=== PATIENT | male | born 1995 | race Caucasian/White ===

== ENCOUNTER 2018-02-18 15:05 | Emergency (ER) | payer OTHER ==
[2018-02-18] MEDS ORDERED: Cephalexin CAP* 500 MG PO ONE (16:17)
[2018-02-18] MEDS ORDERED: Buffered Lidocaine 0.9% SYRIN* 5 ML/SYR SYRINGE INTRADERM ONE (16:19)
--- NOTE | 2018-02-18 16:23 | RAD ---
HISTORY: circular saw lac - distal finger COMPARISONS: None VIEWS: 3 , Frontal, lateral, and oblique views of the fourth digit of the left hand FINDINGS: BONE DENSITY: Normal. BONES: There is a linear defect consistent with a nondisplaced fracture along the medial (ulnar) aspect of the distal phalanx of the fourth digit. JOINTS: There is no arthropathy. ALIGNMENT: There is no dislocation. SOFT TISSUES: Unremarkable. OTHER FINDINGS: None. IMPRESSION: NONDISPLACED FRACTURE OF THE DISTAL PHALANX OF THE FOURTH DIGIT
--- NOTE | 2018-02-18 17:37 | ED ---
Upper Extremity Pain - HPI Summary HPI Summary: [id number] patient presents with left ring finger laceration while using a circular saw at work earlier today. He reports bleeding and some mild pain. He went to the police station as it was the nearest authority he could think of to seek medical attention and they called 911. Ambulance came and wrapped his finger however he declined further care at that time. After discussing his injury with a coworker, he decided to come in here. He reports his tetanus is up-to-date and denies numbness tingling or weakness. His bleeding is controlled with Glenn wrap in place which is been there for about an hour and has not saturated through. He declines pain medication at this time. - History of Current Complaint Chief Complaint: EDLacSutureRecheck Stated Complaint: LT FINGER LAC Time Seen by Provider: 02/18/18 15:15 Hx Obtained From: Patient - Allergies/Home Medications Allergies/Adverse Reactions: Allergies Allergy/AdvReac Type Severity Reaction Status Date / Time No Known Allergies Allergy Verified 02/18/18 15:21 PMH/Surg Hx/FS Hx/Imm Hx Previously Healthy: Yes Endocrine/Hematology History: Denies: Hx Anticoagulant Therapy, Hx Blood Disorders, Autoimmune Disease - Immunization History Immunizations Up to Date: Yes Infectious Disease History: No Infectious Disease History: Denies: Hx of Known/Suspected MRSA, Traveled Outside the [place] in Last 30 Days - Social History Occupation: Employed Full-time - [employer] Lives: With Family Alcohol Use: None Hx Substance Use: No Substance Use Type: Reports: None Hx Tobacco Use: No Smoking Status (MU): Never Smoked Tobacco Review of Systems Constitutional: Other - felt a little lightheaded after the injury but resolved quickly - no syncope Positive: no symptoms reported Musculoskeletal: Negative Skin: Other - lac Neurological: Negative Psychological: Normal All Other Systems Reviewed And Are Negative: Yes Physical Exam Triage Information Reviewed: Yes Vital Signs On Initial Exam: Initial Vitals Temp Pulse Resp BP Pulse Ox 98.7 F 73 18 137/81 99 02/18/18 15:18 02/18/18 15:18 02/18/18 15:18 02/18/18 15:18 02/18/18 15:18 Vital Signs Reviewed: Yes Appearance: Positive: Well-Appearing, No Pain Distress, Well-Nourished Skin: Positive: Warm, Skin Color Reflects Adequate Perfusion - jagged 1.5cm lac along distal Lt ring finger - bleeding controlled - 0.2cm through fingernail ( jagged) Head/Face: Positive: Normal Head/Face Inspection Eyes: Positive: EOMI ENT: Positive: Hearing grossly normal Respiratory/Lung Sounds: Positive: Breath Sounds Present Cardiovascular: Positive: Pulses are Symmetrical in both Upper and Lower Extremities - cap refill < 2 secs Musculoskeletal: Positive: Normal, Strength/ROM Intact Neurological: Positive: Normal, Sensory/Motor Intact, Alert, Oriented to Person Place, Time, CN Intact II-III Psychiatric: Positive: Normal Procedures - Laceration/Wound Repair 1 Location: upper extremity - Lt ring finger, distal Description: Irregular - jagged Anesthesia: Digital, 1.0%, Lido, Bicarb Length, Depth and Shape: 1.5cm x 3mm Betadine Prep?: Yes Irrigated w/ Saline (ccs): 100 - sterile saline Laceration/Wound Explored: clean Closure: Single Layer Suture Type: Other - 5-0 ethilon Number of Sutures: 4 Layer Closure?: No Sterile Dressing Applied?: Yes - xeroform + gauze + coban -hemodynamically stable Diagnostics - Vital Signs Vital Signs Temp Pulse Resp BP Pulse Ox 02/18/18 17:31 60 16 128/66 97 02/18/18 15:18 98.7 F 73 18 137/81 99 - Laboratory Lab Statement: Any lab studies that have been ordered have been reviewed, and results considered in the medical decision making process. Course/Dx - Course Course Of Treatment: XR: non-displaced fx of the distal phalanx. cleaned wound with soak and irrigation as well as iodone prior to sutures - dressed and advised close f/u w/ hand specialist. Reviewed danger s/sx of when to return to ED. Anbx initiated. Pt agrees w/ plan. - Diagnoses Provider Diagnoses: Open fracture of phalanx of left ring finger Discharge - Sign-Out/Discharge Documenting (check all that apply): Patient Departure - Discharge Plan Condition: Stable Disposition: HOME Prescriptions: Cephalexin CAP* [Keflex CAP*] 500 mg PO QID #39 cap Patient Education Materials: Care For Your Stitches (ED), Laceration (ED), Finger Fracture (ED) Forms: *Work Release Referrals: Dickson Lowery MD [Medical Doctor] - Additional Instructions: Keep Dressing clean and dry and in place for the next 48 hours. After that time you may remove dressing, gently wash wound with soap and water, rinse well and pat dry with clean cloth. Reapply triple antibiotic ointment and clean gauze dressing. Continue this daily until sutures are removed. Call hand specialist for wound recheck in 2-3 days. Suture removal in 10-14 days unless advised otherwise. Take your XR with your to hand specialist. Rest, ice, elevate and take ibuprofen with food as needed for pain/swelling. * If you develop redness, swelling, streaking, purulent drainage, fevers or chills, seek medical attention sooner or return to the emergency department. - Billing Disposition and Condition Condition: STABLE Disposition: Home
[2018-02-18 18:25] VITALS: BP 143/76
== END 2018-02-18 18:02 | disposition home or self-care (01) ==
LOC: ED 15:05
DX: S62.665B Nondisplaced fracture of distal phalanx of left ring finger, initial encounter for open fracture (principal); W31.2XXA Contact with powered woodworking and forming machines, initial encounter; Y93.H3 Activity, building and construction; Y92.9 Unspecified place or not applicable; Y99.0 Civilian activity done for income or pay
CPT/HCPCS: 12001; 73140; 99282; A9270-GY